=== PATIENT | male | born 1980 | race Caucasian/White ===

== ENCOUNTER 2024-06-09 23:05 | Inpatient (IN) | payer OTHER, SELFPAY ==
[2024-06-09 19:47] VITALS: BP 153/99; BMI 31.9
[2024-06-09 20:00] VITALS: BP 149/100
--- NOTE | 2024-06-09 20:00 | ED.GENMED ---
History of Present Illness
<Kei Fraire DO, Resident - Last Filed: 06/10/24 17:49>
General
Chief Complaint: Heart Rate Problem
Source: patient
Time Seen by Provider: 06/09/24 19:44
History of Present Illness
History of Present Illness:
Pt is a 44 YO M with no significant PMH presenting to the ED with tachycardia. He reports feeling 'like my heart is beating out of my chest.' He reports palpitations, some SOB intermittently since January, headaches, floaters at night, but no CP, NVD.
He previously took 0.5 mg Xanax to aid with sleep but has not received it since Saturday when arriving to custodial. He was told 'they are detox-ing him from the Xanax' and is unsure what medications he has been receiving.
If applicable-neuro sx onset
Onset of symptoms known: Yes
Date of onset of symptoms: 06/05/24
Past History
<Kei Fraire DO, Resident - Last Filed: 06/10/24 17:49>
Past History
ED Past Medical History: None
ED Past Surgical History: None
Social History
Tobacco: Non-smoker
Alcohol: None
Drug: Marijuana
Living: custodial
Review of Systems
<Kei Fraire DO, Resident - Last Filed: 06/10/24 17:49>
Review of Systems
Constitutional: Reports sleep disturbance
EENT: Reports no symptoms
Respiratory: Reports no symptoms
Cardiac: Reports palpitations
ABD/GI: Reports no symptoms
Skin: Reports no symptoms
Neurological: Reports headache
Phy Exam
<Kei Fraire DO, Resident - Last Filed: 06/10/24 17:49>
General Physical Exam
General Presentation: well appearing
General age: appears stated age
General Skin: warm and dry
General Habitus: normal
General Mental: alert
General Hydration: appears well hydrated
Cardiovascular Exam
Cardiovascular Exam: no edema, no gallop, no JVD, no murmur, normal peripheral pulses and tachycardia
Pulmonary Exam
Pulmonary Exam: lungs clear, no respiratory distress, no rales, chest non tender, no crackles, no rhonchi, no stridor, no wheezing and no cough
Psychiatric Exam
Psychiatric Exam: normal mood/affect
Scores
<Kei Fraire DO, Resident - Last Filed: 06/10/24 17:49>
[id number] Score for Afib Stroke Risk
Score: 0
Anticoagulation Recommendations: Anticoagulation not indicated (as validated in nonvalvular afib). Consider anticoagulation irrespective of score in patients with HCM
<Stalin Martínez DO - Last Filed: 06/09/24 20:36>
[id number] Score for Afib Stroke Risk
Age in Years (65=0, 65-74=1, >/=75=2): <65
Sex (Female=+1): Male
Congestive Heart Failure History (Yes=+1): No
Hypertension History (Yes=+1): No
Stroke/TIA/Thromboembolism History (Yes=+2): No
Vascular Disease History (Yes=+1): No
Diabetes Mellitus (Yes=+1): No
Score: 0
Anticoagulation Recommendations: Anticoagulation not indicated (as validated in nonvalvular afib). Consider anticoagulation irrespective of score in patients with HCM
Course
<Kei Fraire DO, Resident - Last Filed: 06/10/24 17:49>
Orders/Labs/Results
Orders:
Orders
06/09/24 Breakfast
Regular
At Your Request: Full Participation
06/09/24 19:45
EKG [Electrocardiogram (*1)] Urgent
Reason for Study: Tachycardia
06/09/24 19:46
EKG- Treatment ONCE
06/09/24 20:41
Diltiazem 125 mg/125 ml Nss [Cardizem] 125 mg in 125 ml IV NOW
Initial dose in mg/hr, then titrate:: 5
Titrate to keep:: Heart rate 80-100 bpm
Titrate by mg/hr:: 5 mg/hr
Frequency of titrations (minutes):: 15
Maximum dose in mg/hr:: 15
Diltiazem HCl [Cardizem] 15 mg IV NOW STA
06/09/24 21:01
Apixaban [Eliquis] 5 mg PO NOW STA
06/09/24 21:09
Basic Metabolic Panel Urgent
Complete Blood Count/With Diff Urgent
GGTP Urgent
Comment: ADD ON
Magnesium Urgent
Comment: ADD ON
TSH Reflex To Free T4 Urgent
06/09/24 22:45
Add On- LAB Routine
Tests Added?: ggt
Admit/Transfer Patient As Directed
Co-Sign Provider:
Level of Care: Inpatient admission
Assign to:: IVU
Physician / Group: Htay
Diagnosis: A-Fib with RVR
Reason for Hospitalization: Cardizem drip
Expected length of stay greater than two midnights?: Yes
ELOS- Estimated Length of Stay in days: 3
I certify the patient meets the requirements for IP care: Yes
06/09/24 22:46
Code Status As Directed
Resuscitation Status: Full Code
06/09/24 22:47
Add On- LAB Urgent
Tests Added?: mag
06/09/24 23:58
0.9% Sodium Chloride [Nss (Preservative Free)] See Protocol IV PRN PRN
Acetaminophen [Tylenol] 650 mg PO Q4HPRN PRN
Alprazolam [Xanax] 0.5 mg PO NOW STA
Diltiazem 125 mg/125 ml Nss [Cardizem] 125 mg in 125 ml IV PER PROTOCOL
Currently infusing. Continue current dose and titrate:: Yes
Titrate to keep:: Heart rate 80-100 bpm
Titrate by mg/hr:: 5 mg/hr
Frequency of titrations (minutes):: 15
Maximum dose in mg/hr:: 15
FOLic ACID [Folvite] 1 mg 0.9% Sodium Chloride 50 ml [Nss] 50 ml IV DAILYPRN
Lorazepam [Ativan] 1 mg IV Q1HPRN PRN
Lorazepam [Ativan] 1 mg PO Q2HPRN PRN
Lorazepam [Ativan] 2 mg IV Q1HPRN PRN
06/09/24 23:58
CARDIOLOGY CONSULT Routine
Consulting Provider: Juan Manuel Willis
Was physician already notified: Yes
Case Management Consult Once
Case Management Consult: Other
Comment: Substance abuse counseling
DIETARY CONSULT Routine
Reason for Consult: Nutrition support, possible refeeding guidelines
Activity As Directed
Activity Level: Out of Bed-Early Mobility
With Assistance
I&O [Intake/ Output] As Directed
Frequency: q12h
MSAS SCORE As Directed
MSAS Score 0-4: Repeat MSAS every 2 hours until 0-4 for three consecutive assessments, then every 4 hours x 48
hours.
MSAS Score 5-7: For MILD withdrawl symptoms. Repeat MSAS and RASS every 2 hours
MSAS Score 8-11: For MODERATE withdrawal symptoms. Repeat MSAS and RASS every 1 hour. Consider ICU or IMU
level of care.
MSAS Score > 11: For SEVERE withdrawal symptoms. Repeat MSAS and RASS every 1 hour. Notify provider, consider
ICU level of care.
MSAS Additional Instructions: If no improvement or no decrease in score from severe to moderate within 12
hours, consult psychiatry
MSAS Notify Provider: Notify provider if patient requires more than 10 mg of Lorazepam in eight hour period.
Vital Signs As Directed
Frequency: Per unit guidelines
Weight As Directed
Frequency: Daily
06/10/24 02:41
Basic Metabolic Panel IN AM
Complete Blood Count/No Diff IN AM
Magnesium IN AM
06/10/24 Breakfast
NPO
Allow oral meds: Yes
Allow clear liquids: 4hrs prior to procedure
NPO with Ice Chips: Yes
Comment: may have unrestricted clear liquid up to 4 hrs prior to scheduled procedure
06/10/24 08:00
Apixaban [Eliquis] 5 mg PO BID
FOLic ACID [Folvite] 1 mg PO DAILY
Thiamine Injection 200 mg IV Q12
06/10/24 22:00
Alprazolam [Xanax] 0.5 mg PO HS
06/13/24 08:00
Thiamine HCl [Vitamin B1] 100 mg PO BID
Abnormal Lab Results
06/09/24
21:09
MCH 31.4 H pg
(27.0-31.0)
Absolute Monos (auto) 0.8 H 10^3/uL
(0.1-0.6)
Monocytes % 16.2 H %
(1.7-9.3)
Glucose 118 H mg/dl
(70-99)
06/09/24 21:09
06/09/24 21:09
Vital Signs
Initial and Last Documented VS:
Initial Vital Signs
Temp Pulse Resp BP Pulse Ox
98.2 F 152 22 153/99 97
06/09/24 19:47 06/09/24 19:47 06/09/24 19:47 06/09/24 19:47 06/09/24 19:47
Last Documented Vital Signs
Temp Pulse Resp BP Pulse Ox
97.5 F 75 20 108/68 99
06/10/24 15:54 06/10/24 15:55 06/10/24 15:54 06/10/24 15:55 06/10/24 15:55
[employer]olt;Stalin Martínez, - Last Filed: 06/09/24 20:36>
Orders/Labs/Results
Orders:
Orders
06/09/24 Breakfast
Regular
At Your Request: Full Participation
06/09/24 19:45
EKG [Electrocardiogram (*1)] Urgent
Reason for Study: Tachycardia
06/09/24 19:46
EKG- Treatment ONCE
06/09/24 20:41
Diltiazem 125 mg/125 ml Nss [Cardizem] 125 mg in 125 ml IV NOW
Initial dose in mg/hr, then titrate:: 5
Titrate to keep:: Heart rate 80-100 bpm
Titrate by mg/hr:: 5 mg/hr
Frequency of titrations (minutes):: 15
Maximum dose in mg/hr:: 15
Diltiazem HCl [Cardizem] 15 mg IV NOW STA
06/09/24 21:01
Apixaban [Eliquis] 5 mg PO NOW STA
06/09/24 21:09
Basic Metabolic Panel Urgent
Complete Blood Count/With Diff Urgent
GGTP Urgent
Comment: ADD ON
Magnesium Urgent
Comment: ADD ON
TSH Reflex To Free T4 Urgent
06/09/24 22:45
Add On- LAB Routine
Tests Added?: ggt
Admit/Transfer Patient As Directed
Co-Sign Provider:
Level of Care: Inpatient admission
Assign to:: IVU
Physician / Group: Htay
Diagnosis: A-Fib with RVR
Reason for Hospitalization: Cardizem drip
Expected length of stay greater than two midnights?: Yes
ELOS- Estimated Length of Stay in days: 3
I certify the patient meets the requirements for IP care: Yes
06/09/24 22:46
Code Status As Directed
Resuscitation Status: Full Code
06/09/24 22:47
Add On- LAB Urgent
Tests Added?: mag
06/09/24 23:58
0.9% Sodium Chloride [Nss (Preservative Free)] See Protocol IV PRN PRN
Acetaminophen [Tylenol] 650 mg PO Q4HPRN PRN
Alprazolam [Xanax] 0.5 mg PO NOW STA
Diltiazem 125 mg/125 ml Nss [Cardizem] 125 mg in 125 ml IV PER PROTOCOL
Currently infusing. Continue current dose and titrate:: Yes
Titrate to keep:: Heart rate 80-100 bpm
Titrate by mg/hr:: 5 mg/hr
Frequency of titrations (minutes):: 15
Maximum dose in mg/hr:: 15
FOLic ACID [Folvite] 1 mg 0.9% Sodium Chloride 50 ml [Nss] 50 ml IV DAILYPRN
Lorazepam [Ativan] 1 mg IV Q1HPRN PRN
Lorazepam [Ativan] 1 mg PO Q2HPRN PRN
Lorazepam [Ativan] 2 mg IV Q1HPRN PRN
06/09/24 23:58
CARDIOLOGY CONSULT Routine
Consulting Provider: Juan Manuel Willis
Was physician already notified: Yes
Case Management Consult Once
Case Management Consult: Other
Comment: Substance abuse counseling
DIETARY CONSULT Routine
Reason for Consult: Nutrition support, possible refeeding guidelines
Activity As Directed
Activity Level: Out of Bed-Early Mobility
With Assistance
I&O [Intake/ Output] As Directed
Frequency: q12h
MSAS SCORE As Directed
MSAS Score 0-4: Repeat MSAS every 2 hours until 0-4 for three consecutive assessments, then every 4 hours x 48
hours.
MSAS Score 5-7: For MILD withdrawl symptoms. Repeat MSAS and RASS every 2 hours
MSAS Score 8-11: For MODERATE withdrawal symptoms. Repeat MSAS and RASS every 1 hour. Consider ICU or IMU
level of care.
MSAS Score > 11: For SEVERE withdrawal symptoms. Repeat MSAS and RASS every 1 hour. Notify provider, consider
ICU level of care.
MSAS Additional Instructions: If no improvement or no decrease in score from severe to moderate within 12
hours, consult psychiatry
MSAS Notify Provider: Notify provider if patient requires more than 10 mg of Lorazepam in eight hour period.
Vital Signs As Directed
Frequency: Per unit guidelines
Weight As Directed
Frequency: Daily
06/10/24 02:41
Basic Metabolic Panel IN AM
Complete Blood Count/No Diff IN AM
Magnesium IN AM
06/10/24 Breakfast
NPO
Allow oral meds: Yes
Allow clear liquids: 4hrs prior to procedure
NPO with Ice Chips: Yes
Comment: may have unrestricted clear liquid up to 4 hrs prior to scheduled procedure
06/10/24 08:00
Apixaban [Eliquis] 5 mg PO BID
FOLic ACID [Folvite] 1 mg PO DAILY
Thiamine Injection 200 mg IV Q12
06/10/24 22:00
Alprazolam [Xanax] 0.5 mg PO HS
06/13/24 08:00
Thiamine HCl [Vitamin B1] 100 mg PO BID
Abnormal Lab Results
06/09/24
21:09
MCH 31.4 H pg
(27.0-31.0)
Absolute Monos (auto) 0.8 H 10^3/uL
(0.1-0.6)
Monocytes % 16.2 H %
(1.7-9.3)
Glucose 118 H mg/dl
(70-99)
06/09/24 21:09
06/09/24 21:09
Vital Signs
Initial and Last Documented VS:
Initial Vital Signs
Temp Pulse Resp BP Pulse Ox
98.2 F 152 22 153/99 97
06/09/24 19:47 06/09/24 19:47 06/09/24 19:47 06/09/24 19:47 06/09/24 19:47
Last Documented Vital Signs
Temp Pulse Resp BP Pulse Ox
97.5 F 75 20 108/68 99
06/10/24 15:54 06/10/24 15:55 06/10/24 15:54 06/10/24 15:55 06/10/24 15:55
<Kei Fraire DO, Resident - Last Filed: 06/10/24 17:49>
MDM/Problems Addressed
Differential Diagnosis Includes:
atrial fibrillation
MDM/Problems Addressed:
Pt is a 44 YO M presenting to the ED from custodial after new onset afib. He was given 15 mg Cardizem and admitted to the hospital for potential cardioversion. Consult Cardio
Chronic conditions affecting care:
Afib
Acute Exacerbation and/or Progression of Chronic Illness:
Afib
<Kei Fraire DO, Resident - Last Filed: 06/10/24 17:49>
*Pulse Oximetry
Patient hypoxic: no
*EKG
Interpreted by ED Provider?: Yes
Interpretation: abnormal
Comparison EKG: no comparison EKG present
Heart Rate: 122
Rate: tachycardiac
Rhythm: a-fib
Ischemia: no ischemia
*Certified Forklift Operator Interpretation
Rate: tachycardiac
Interpretation: abnormal
Heart Rate: 122
Rhythm: a-fib
*Critical Care Note
Total Time (30-74mins, 75-104mins- exclusive of procedures): Not Applicable
ED Attending Note
<Kei Fraire DO, Resident - Last Filed: 06/10/24 17:49>
-
Portions of this chart may have been created with voice recognition software.� Occasional wrong word or��sound alike� substitutions may have occurred due to the inherent limitations of voice recognition software.
Discharge Plan
Departure
Patient Disposition: Admit
Presentation/result/management discussed w/ accepting MD/DO: Hospitalist
Discharge Problem:
Atrial fibrillation
Interventions
Interventions:
*Risk Screen - Suicide Last Done: 06/09/24 20:00
*General Assessment Last Done: 06/09/24 19:47
*Neglect/Abuse Screening Last Done: 06/09/24 19:47
ED- Fall Risk Assessment Last Done: 06/09/24 19:59
*ED COVID-19 Vaccine History Last Done: 06/10/24 00:05
*Nursing Disposition Last Done: 06/10/24 00:05
ED- Cardiac Assessment Last Done: 06/09/24 19:59
ED- Pulmonary Assessment Last Done: 06/09/24 19:59
Discharge Date and Time
Discharge Date/Time: 06/10/24 00:06
[2024-06-09 21:00] VITALS: BP 137/93
[2024-06-09] MEDS: ELIQUIS 5 MG PO (21:11)
[2024-06-09] MEDS: CARDIZEM 125 IV (21:11)
[2024-06-09] MEDS: CARDIZEM 15 MG IV (21:11)
[2024-06-09 21:15] LABS: % Basophils 0.4 % (0-2); % Eosinophils 4.4 % (0-6); % Immature Granulocytes 0.2 % (0-0.5); % Lymphocytes 26.6 % (20.5-51.1); % Monocytes 16.2 % (1.7-9.3); % Neutrophils 52.2 % (42.2-75.2); Absolute Eosinophils 0.2 10^3/uL (0-0.7); Absolute Lymphocytes 1.3 10^3/uL (1.2-3.4); Absolute Monocytes 0.8 10^3/uL (0.1-0.6); Absolute Neutrophils 2.5 10^3/uL (1.4-6.5); Hematocrit 43.9 % (39.0-52.0); Hemoglobin 15.4 g/dL (13.0-18.0); Mean Corp Hgb Conc. 35.1 g/dL (33.0-37.0); Mean Corpuscular Hgb 31.4 pg (27.0-31.0); Mean Corpuscular Volume 89.4 fL (80.0-94.0); Mean Platelet Volume 9.4 fL (7.4-10.4); Nucleated Red Blood Cells % 0 % (-); Platelet Count 209 10^3/uL (130-400); Red Blood Cell Count 4.91 10^6/uL (4.70-6.10); Red Cell Dist. Width 13.3 % (11.5-14.5); White Blood Cell Count 4.8 10^3/uL (4.8-10.8)
[2024-06-09 21:33] LABS: Blood Urea Nitrogen 17 mg/dl (9-20); Carbon Dioxide 24 mmol/L (22-30); Chloride 102 mmol/L (98-107); Estimated Creatinine Clearance 98 ml/min; Glucose 118 mg/dl (70-99); Potassium 4.1 mmol/L (3.5-5.1); Sodium 140 mmol/L (135-145); eGFR > 60.00
[2024-06-09 22:00] VITALS: BP 138/107
[2024-06-09 22:04] LABS: TSH Reflex To Free T4 1.03 uIU/ml (0.47-4.68)
--- NOTE | 2024-06-09 22:51 | W.PN.UPDATE ---
Update Note
Progress Note Update
This note serves as an addendum to the H&P by data systems manager GUIDO Prachi CANTU
HPI
44M from [facility] with no significant PMHx seen at ER for evalaution of racing heart
- reports palpitations started
- somewhat intermittently SoB since January
- Denied CP , N/V/D
- usually take clonazepam 0.5 mgHS but not taking since Saturday for last 5 days following arrest and sent to [facility]
Reviewed VS: afebrile HR 98 BP 135/93 RR 21 POx 96
PE
Gen: NAD, not toxic
HEENT: anicteric
Neck: supple, no JVD
Lungs: CTA
Cor: irregular tachycardia
Abdomen: soft, benign
DISTRIBUTION DISPATCHER: AAO3 , NFND
MS: no edema
Psych: appropriate
[id number] Score for Afib Stroke Risk
Age in Years (65=0, 65-74=1, >/=75=2): <65
Sex (Female=+1): Male
Congestive Heart Failure History (Yes=+1): No
Hypertension History (Yes=+1): No
Stroke/TIA/Thromboembolism History (Yes=+2): No
Vascular Disease History (Yes=+1): No
Diabetes Mellitus (Yes=+1): No
Score: 0
Anticoagulation Recommendations: Anticoagulation not indicated (as validated in nonvalvular afib).
Consider anticoagulation irrespective of score in patients with HC
Data
Unremarkable CBC and BMP
nl TSH
EKG report
ATRIAL FIBRILLATION WITH RAPID VENTRICULAR RESPONSE
ABNORMAL ECG
NO PREVIOUS ECGS AVAILABLE
No prior hospitalist admission:
ASSESSMENT & PLAN
New onset paroxysmal fast AF
[id number] Score for Afib Stroke Risk is ZERO
- ECHO in AM
- cont. Diltiazem gtt
- ER initiated Eliquis
- Card consulted by ER attbrent and suggest NPO overnight and will consider CV
Xanax dependent insomnia /anxiety
- getting Clonazepam ai [facility]
- resume Xanax HS PRN
HX ETOH use
Currently under custody for DUI + others ??
- MSAS
DVT Px: on Eliquis
Code: Full code
IP TLM
--- NOTE | 2024-06-09 22:55 | HPS.HSE ---
Family Physician
-
Family Physician: [facility] [place] [facility]
Chief Complaint
-
Elevated Heart Rate
History of Present Illness
Patient is a 44 y/o male without significant past medical history who presents with elevated heart rate. Patient has been incarcerated at [facility] since Saturday for a DUI. He notes since incarceration he has been having difficult sleeping. He reports
usually taking Xanax at bedtime to help him sleep and he reports the [facility] has been trying to wean him from the Xanax. Patient was noted to have elevated heart rate today and ECG at [facility] revealed atrial fibrillation with rapid ventricular
response, and he was sent to the emergency department for evaluation. He reports no prior history of atrial fibrillation. He reports feeling fatigued over the past few months, with some intermittent palpitations and shortness of breath. He denies
chest pain or lower extremity edema.
Medical History
Past Medical History
Past Medical History: Reports Other
Additional Past Medical History:
Spinal Stenosis
Past Surgical History: Reports Other
Additional Past Surgical History:
Laminectomy
Social History
Tobacco: Non-smoker
Alcohol: Occasional (Patient reports 2 shots of Monica occasionally for back pain)
Living: Jail
Family History
Family History: Other (Two Grandparents with history a-fib)
Allergies / Home Medications
Allergies reflects when Allergies were last updated in [employer].
Home Medications with original date entered in [employer]
Allergy/Medication List:
Allergies
Allergy/AdvReac Type Severity Reaction Status Date / Time
acetaminophen [From Tylenol] Allergy GI Verified 09/13/21 00:04
upset/bleeding?
bee pollen Allergy Anaphylaxis Verified 09/13/21 00:04
meloxicam [From Mobic] Allergy Anaphylaxis Verified 09/13/21 00:04
methylprednisolone Allergy Anaphylaxis Verified 09/13/21 00:04
[From Medrol]
Home Medications
clonazepam 0.5 mg tablet 0.5 mg PO BID 06/09/24
cyclobenzaprine 5 mg tablet 5 mg PO BIDPRN PRN muscle spasms 06/09/24
methocarbamol 750 mg tablet 750 mg PO BIDPRN PRN back pain 06/09/24
Review of Systems
-
A 12 point ROS was completed and negative except as noted: Yes
Constitutional: Denies Fever or Chills
Respiratory: Reports Trouble Breathing; Denies Cough
Cardiac: Reports Palpitations; Denies Chest Pain
Physical Exam
Vital Signs
Vital Signs
Temp Pulse Resp BP Pulse Ox
98.2 F 114 22 138/107 95
06/09/24 19:47 06/09/24 22:45 06/09/24 22:45 06/09/24 22:00 06/09/24 22:45
Physical Exam
General: Comfortable and Conversant
HEENT: Anicteric and Moist mucous membranes
Respiratory: Clear and Non Labored Respirations
Cardiac: S1/S2, Irregular Rhythm and Tachycardia
GI: Soft and Non Tender
Rectal: Deferred by Provider
Musculoskeletal: No Clubbing, No Cyanosis and No Edema
Skin: Warm and Dry
Neuro: Awake, Alert, Oriented and Nonfocal/grossly intact
Psych: Calm
Laboratory Results
-
06/09/24 21:09
06/09/24 21:09
Data Reviewed
-
Lab Data: Labs Reviewed by me
Impression/Plan
-
Atrial Fibrillation with Rapid Ventricular Response
-Consult Cardiology
-Continue Cardizem Drip
-Continue Eliquis
-NPO after midnight for possible Cardioversion in AM
Insomnia
-Continue Xanax 0.5mg HS as patient was taking prior to incarceration
Hx Alcohol Use
-Currently incarcerated for DUI
-Continue alcohol withdrawal protocol
DVT proph: Eliquis
Code Status: Full Code
[2024-06-09 23:00] VITALS: BP 170/121
[2024-06-09 23:08] LABS: GGTP 24 U/L (15-73); Magnesium 2.1 mg/dl (1.6-2.3)
[2024-06-10] VITALS (9 sets, daily range): BP systolic 108–164; BP diastolic 68–115; BMI 31.9; BMI 31.2
[2024-06-10] MEDS: XANAX 0.5 MG PO (00:12)
--- NOTE | 2024-06-10 01:29 | PTCARENOTE ---
received patient from the ED with 2 guards. AAOx3. denies any pain. states feeling better, 'since that medication, my heart isn't pounding as much.' denies sob at this time. Afib on tele. 70s-80s. decreased cardizem gtt to 10 ml/hr. bp stable. MSAS
1. during admission questions, patient states 'i do not drink. I never drink.' RN documented admission questions as stated by patient.
reviewed plan of care with patient and verbalized understanding. NPO for possible CV in AM. afib booklet provided.
[2024-06-10 03:13] LABS: Hematocrit 44.4 % (39.0-52.0); Hemoglobin 15.3 g/dL (13.0-18.0); Mean Corp Hgb Conc. 34.5 g/dL (33.0-37.0); Mean Corpuscular Hgb 31.7 pg (27.0-31.0); Mean Corpuscular Volume 91.9 fL (80.0-94.0); Mean Platelet Volume 8.9 fL (7.4-10.4); Platelet Count 175 10^3/uL (130-400); Red Blood Cell Count 4.83 10^6/uL (4.70-6.10); Red Cell Dist. Width 13.2 % (11.5-14.5); White Blood Cell Count 4.6 10^3/uL (4.8-10.8)
[2024-06-10 03:37] LABS: Blood Urea Nitrogen 14 mg/dl (9-20); Calcium 9.6 mg/dl (8.4-10.2); Carbon Dioxide 25 mmol/L (22-30); Chloride 103 mmol/L (98-107); Estimated Creatinine Clearance 116 ml/min; Glucose 102 mg/dl (70-99); Magnesium 2.1 mg/dl (1.6-2.3); Potassium 3.8 mmol/L (3.5-5.1); Sodium 139 mmol/L (135-145); eGFR > 60.00
--- NOTE | 2024-06-10 07:07 | PTCARENOTE ---
In to introduce myself to the patient after receiving report and noticed that the patient had just converted to NSR. ECG confirmed conversion, NSR with a 1st degree AVB. Cardizem gtt running at 10mg/hr. Notified Dr. Adhikari.
[2024-06-10] MEDS: THIAMINE INJECTION 200 MG IV (07:51)
[2024-06-10] MEDS: ELIQUIS 5 MG PO (07:51)
[2024-06-10] MEDS: FLUSH (NSS) 1 FLUSH IV ×2 (07:56→07:57)
[2024-06-10] MEDS: FOLVITE 1 MG PO (07:59)
--- NOTE | 2024-06-10 08:04 | CON.CAR ---
Addendum entered and electronically signed by Stalin Adhikari MD 06/10/24 14:36:
Patient seen and examined in collaboration with [employer]; agree with below.
-44-year-old male with likely untreated hypertension admitted with atrial fibrillation with RVR; currently incarcerated for a DUI.
-C2V = 1; patient converted back to sinus rhythm overnight on a Cardizem drip.
-Echocardiogram today revealed normal LVEF and no significant valvulopathy.
-Patient can be discharged today on Eliquis 5 mg twice daily for 1 month and Cardizem CD 180 mg daily.
-Outpatient follow-up with Cardiology; outpatient stress test for ischemic evaluation, given new onset paroxysmal atrial fibrillation.
Original Note:
Consultation
Consultation Request
Date/Time Consultation Requested: 06/09/2024 23:50
Date/Time Consultation Performed: 06/10/2024 08:00
Requesting Provider: Mahogany Tiardo PA-C
Performing Provider: KAITLYNN Pepper for Dr. Adhikari
Reason for Consultation: Atrial fibrillation with rapid ventricular response
Medical History
-
Chief Complaint: Tachycardia with palpitations
History of Present Illness:
Addi Lilly is a 44-year-old male for [facility] who presented with elevated heart rate. He has been incarcerated since 06/05/2024. He endorses insomnia. Prior to incarceration, he was using Xanax to help him
sleep. He was found to be in atrial fibrillation with rapid ventricular response and was sent to the emergency department for evaluation. This is a new diagnosis for him. He was started on a diltiazem drip. He is in sinus rhythm this morning
with a first-degree AV block. He had no chest pain with his arrhythmia.
Past Medical History
Past Medical History: Psychiatric (Alcohol misuse) and Other (Spinal stenosis)
Past Surgical History: Orthopedic (Laminectomy) and Other (Vein surgery age 15 to LLE)
Social History
Tobacco: Non-Smoker
Alcohol: Occasional
Drug: None
Living: Care Home
Employment: Employed (Construction)
Family History
Family History: Reviewed & Not Pertinent (Denies early CAD and SCD.)
Allergies / Home Medications
Allergy/AdvReac Type Severity Reaction Status Date / Time
acetaminophen [From Tylenol] Allergy GI Verified 09/13/21 00:04
upset/bleeding?
bee pollen Allergy Anaphylaxis Verified 09/13/21 00:04
meloxicam [From Mobic] Allergy Anaphylaxis Verified 09/13/21 00:04
methylprednisolone Allergy Anaphylaxis Verified 09/13/21 00:04
[From Medrol]
�Medication �Instructions �Recorded �Confirmed �Type
clonazepam 0.5 mg tablet 0.5 mg PO BID 06/09/24 06/09/24 History
cyclobenzaprine 5 mg tablet 5 mg PO BIDPRN PRN muscle spasms 06/09/24 06/09/24 History
methocarbamol 750 mg tablet 750 mg PO BIDPRN PRN back pain 06/09/24 06/09/24 History
Review of Systems
-
History Source: Patient
All other systems: Negative unless noted
Constitutional: Fatigue
EENT: No Symptoms
Respiratory: No Symptoms
Cardiac: No Symptoms
Abdomen/GI: No Symptoms
: No Symptoms
Musculoskeletal: No Symptoms
Skin: No Symptoms
Neurological: No Symptoms
Endocrine: No Symptoms
Hematologic/Lymphatic: No Symptoms
Physical Exam
Vital Signs
Temp Pulse Resp BP Pulse Ox
97.7 F 75 20 122/86 97
06/10/24 06:42 06/10/24 07:45 06/10/24 06:42 06/10/24 06:44 06/10/24 06:42
Lab Results
06/10/24 02:41
06/10/24 02:41
Physical Exam
General: Well Developed, Well Nourished, No Apparent Distress and Comfortable
HEENT: Normocephalic, Anicteric and Moist Mucous Membranes
Respiratory: Clear and Non Labored Respirations
Cardiac: S1/S2, Regular Rhythm and Peripheral Edema (Nonpitting +1 LLE)
Breast: Deferred by me
GI: Soft, Non Tender, Non Distended and Normal Bowel Sounds
Rectal: Deferred by Provider
Genito-urinary: No Costovertebral Tender
Musculoskeletal: No Clubbing and No Cyanosis
Skin: Warm and Dry
Neuro: AO x 3
Hematologic/Lymphatic: No Lymphadenopathy
Psych: Calm
Impression / Plan
-
Atrial fibrillation with rapid ventricular response
-Back in sinus
-Oral Anticoagulation: None prior to arrival, he was given apixaban overnight for potential FLETCHER/DCCV
-[id number]: Score 0 (<del>Heart</del> <del>failure,</del> <del>HTN,</del> <del>age</del> <del>76</del> <del>or</del> <del>more,</del> <del>Diabetes</del> <del>Mellitus,</del> <del>prior</del> <del>Stroke/TIA,</del> <del>Vascular</del>
<del>disease,</del> <del>age</del> <del>65-74,</del> <del>female</del> <del>gender</del>)
-Echocardiogram today
-Transition to oral diltiazem
-We discussed increased risk for atrial fibrillation specifically excess alcohol consumption, untreated PAUL, and sedentary lifestyle
Elevated blood pressure, this has improved, no formal diagnosis of hypertension and perhaps there is an element of withdrawal
Alcohol misuse, on MSAS as per primary
Spinal stenosis
BMI 31.9
Data Reviewed
-
EKG: Report Reviewed by me (Atrial fibrillation with rapid ventricular response, rate 112; sinus rhythm with first-degree AV block, nonspecific ST abnormality, rate 80)
Labs: Labs Reviewed by me
Old Records: Reviewed
[2024-06-10] MEDS: CARDIZEM 125 IV (08:07)
[2024-06-10] MEDS: TYLENOL 650 MG PO ×2 (08:07→15:30)
--- NOTE | 2024-06-10 12:36 | CM ---
Reviewed chart. Received consult for substance abuse counseling. Met with Mr. Lilly to review discharge plans. Currently he is in [facility]. We reviewed if he wanted any information and counseling for Substance counseling. He states he is not
interested in getting any information regarding counseling services at this time. Medical work-up in progress. The discharge plan is to return to [facility] when medically stable.
--- NOTE | 2024-06-10 14:45 | W.PN.HOSP.TC ---
Addendum entered and electronically signed by Joe Retana MD 06/10/24 15:16:
Benzodiazepine use with dependence
Original Note:
Today's Communication/Plan
-
Monitor vital signs see plan
Discharge today
Continue Eliquis
P.o. diltiazem
Time of discharge 37 minutes
Assessment / Plan
Assessment / Plan
General: Comfortable and Conversant
HEENT: Anicteric and Moist mucous membranes
Respiratory: Clear and Non Labored Respirations
Cardiac: S1/S2, regular Rhythm
GI: Soft and Non Tender
Musculoskeletal: No Clubbing, No Cyanosis and No Edema
Neuro: Awake, Alert, Oriented and Nonfocal/grossly intact
Psych: Calm
New onset Atrial Fibrillation with Rapid Ventricular Response
Overnight converted subsequently to normal sinus rhythm
Change IV Cardizem to p.o.
Reviewed with cardiology, echocardiogram without any acute changes
Started on Eliquis
Will discharge patient with outpatient follow-up
TSH wnl
Insomnia
-Continue Xanax 0.5mg HS as patient was taking prior to incarceration
Hx Alcohol Use
-Currently incarcerated for DUI
-Continue alcohol withdrawal protocol
DVT proph: Eliquis
Code Status: Full Code
Anticipated Discharge: Today
Subjective/Interval History
-
Date of Service: June 10, 2024
Denies chest pain
Objective Data
-
Labs:
Laboratory Results
06/10/24
02:41
WBC 4.6 L
Hgb 15.3
Hct 44.4
Plt Count 175
Sodium 139
Potassium 3.8
Chloride 103
Carbon Dioxide 25
BUN 14
Creatinine 1.1
Glucose 102 H
Calcium 9.6
Vital Signs:
Vital Signs
Temp Pulse Resp BP Pulse Ox
98 F 78 20 127/79 97
06/10/24 12:21 06/10/24 13:00 06/10/24 12:21 06/10/24 12:24 06/10/24 12:23
--- NOTE | 2024-06-10 14:49 | PN.CDI ---
CDI
- -
CDI:
Physician Documentation Request
Admit Date: 06/09/24 23:05
Dear Doctor Mazin,
Clinical Indicators:
Patient admitted with new onset atrial fibrillation.
06/09 ED Report, 'He previously took 0.5 mg Xanax to aid with sleep but has not received it since Saturday when [facility]. He was told 'they are detox-ing him from the Xanax'
06/10 Cardiology consult,'Elevated blood pressure, this has improved, no formal diagnosis of hypertension and perhaps there is an element of withdrawal'
06/10 PN, '-Continue Xanax 0.5mg HS as patient was taking prior to incarceration'
Please clarify if there is any diagnosis associated with the above medication usage:
Benzodiazepine use with dependence
Benzodiazepine use with dependence and suspected withdrawal
Benzodiazepine use only
Other, please specify
Use of terms such as suspected, likely, concern for, or probable (associated with a specific diagnosis that is being evaluated, monitored, or treated as if it exists) are acceptable and can be coded in the inpatient setting, when documented at the
time of discharge.
Thank you,
Tatiana Ivy RN BSN
CDI Specialist
available via tiger text
Please use your independent medical judgment in providing your response.
--- NOTE | 2024-06-10 14:51 | W.DCSUMMARY ---
Discharge Summary
Discharge Data
Date of Admission: 06/09/24
Date of Discharge: 06/10/24
-
Pending Results: No
Hospital Course
44-year-old male with a history of alcohol use, insomnia came to the hospital from [facility] with new onset atrial fibrillation with rapid ventricular rate. Patient was initially started on IV Cardizem which was later transitioned to p.o. Cardizem
prior to discharge. Patient subsequently converted to normal sinus rhythm on this hospitalization. Echocardiogram was also done which did not show any acute abnormality. Patient was seen by cardiology throughout hospitalization. Patient
instructed to follow-up with cardiology outpatient. For anticoagulation patient was started on Eliquis. Once patient symptoms continue to improve he was then discharged back to [facility] with instructions to follow-up with all his physicians
outpatient.
Discharge Plan
-
Patient Disposition: Group Home
Discharge Diagnosis/Procedures: New onset atrial fibrillation with rapid ventricular rate
Condition: Fair
Diet: As tolerated
Activity: No restrictions
Bathing Restrictions: None
Referrals:
Stalin Adhikari MD [Active] - in three to four weeks
[facility] [Family Provider] - in less than 1 week
Prescriptions:
New
diltiazem HCl 180 mg Capsule,Extended Release 24hr
180 mg PO DAILY Qty: 0 0RF
thiamine HCl (vitamin B1) 100 mg Tablet
100 mg PO BID Qty: 0 0RF
folic acid 1 mg Tablet
1 mg PO DAILY Qty: 0 0RF
Eliquis 5 mg Tablet
5 mg PO BID Qty: 0 0RF
Continued
clonazepam 0.5 mg Tablet
0.5 mg PO BID
methocarbamol 750 mg Tablet
750 mg PO BIDPRN PRN (Reason: back pain)
cyclobenzaprine 5 mg Tablet
5 mg PO BIDPRN PRN (Reason: muscle spasms)
Discharge Orders:
Discharge Patient (As Directed); Ordered 06/10/24
Ordered By: Joe Retana
Care Plan Goals
Care Plan Goals:
Problem: Readiness for enhanced knowledge related to diagnosis and treatment plan
Goal: Understand your diagnosis and treatment plan needs, including medications if applicable.
Instructions: Know your diagnosis, underlying causes and treatment plan options, including medications if applicable. Consult with your health care team to learn about your diagnosis and treatment plan, including medications if applicable.
Discharge Date and Time
Print Language: WELSH
== END 2024-06-10 18:18 | DRG 309 ==
LOC: IVU 23:05
PROVIDERS: Physician Assistant Medical; ADMITTING PHYSICIAN Internal Medicine; ATTENDING PHYSICIAN Internal Medicine; EMERGENCY PHYSICIAN Emergency Medicine; OTHER PHYSICIAN Internal Medicine
DX: I48.0 Paroxysmal atrial fibrillation (principal); F13.20 Sedative, hypnotic or anxiolytic dependence, uncomplicated; G47.00 Insomnia, unspecified
CPT/HCPCS: 80048; 82977; 83735; 84443; 85025; 85027; 87070; 93005; 93306; 96374; 96376; 99285

== ENCOUNTER 2024-06-26 09:25 | Emergency (ER) | payer OTHER, SELFPAY ==
[2024-06-26 09:30] VITALS: BP 154/81
--- NOTE | 2024-06-26 09:30 | ED.GENMED ---
History of Present Illness
General
Chief Complaint: Chest Pain
Time Seen by Provider: 06/26/24 09:29
History of Present Illness
History of Present Illness:
HPI: The patient comes in by ambulance from [facility]. The patient felt dizzy and then nearly passed out this morning. He also reports having intermittent chest discomfort and left-sided paresthesias ongoing since his last
visit here in 2 weeks ago. At that time he was found to be in new onset A-fib with RVR and was placed on Cardizem he was also started on Eliquis. The patient reports some concerns if he was actually getting the Eliquis or not. He thinks he last
received Eliquis last evening. Blood sugar for EMS was 95.
EXAM:
GENERAL: Well appearing in no distress
HEENT: Moist oral mucosa
CARDIOVASCULAR: No murmurs, intermittently tachycardic heart rate, irregular rhythm, No chest wall tenderness
PULMONARY: No respiratory distress, breath sounds are clear and equal
ABDOMEN: Soft with no peritoneal signs, no tenderness
NEUROLOGIC: Good strength all extremities with exception of some weakness into dorsiflexion at the left ankle, no coordination deficits
PSYCHIATRIC: Appropriate mental status, normal insight and judgement
EXTREMITIES: Nontender, no edema, moves all extremities equally
SKIN: No rash, no lesions
TIME OF INITIAL ENCOUNTER: 9:30 AM
NUMBER AND COMPLEXITY OF PROBLEMS ADDRESSED AT THE ENCOUNTER
� Chronic conditions affecting care: Recent diagnosis of atrial fibrillation with RVR
� Acute Exacerbation and/or Progression of Chronic Illness: This is an acute problem
� Differential Diagnosis includes: Recurrence of A-fib with RVR, dehydration, anemia, electrolyte abnormality, thyroid testing was recently normal
AMOUNT AND/OR COMPLEXITY OF DATA TO BE REVIEWED AND ANALYZED
� I performed an independent evaluation of and my interpretation is:
EKG: A-fib 84, leftward axis deviation, nonspecific ST abnormality
CT: CT shows no acute intracranial abnormality
X-rays:
Laboratory Studies: CBC, chemistries, troponin unremarkable
Other: Ultrasound imaging shows no DVT
� Review of other/old records: I reviewed discharge summary from earlier this month. He was discharged on Cardizem and Eliquis. Echo showed normal LVEF and no significant valvulopathy
� Clinical information was obtained by an independent historian: I spoke to [facility] officers
� Prescriptions/Medications Considered but not given:
� Further testing considered but not performed: Consider repeat troponin however the patient's symptoms of chest discomfort have been ongoing for weeks.
RISK OF COMPLICATIONS AND/OR MORBIDITY OR MORTALITY OF PATIENT MANAGEMENT
� Social determinants of health affecting care: Currently resides at [facility] (recent DUI)
� Discussion with other providers: I spoke to the [facility] nurse which indicates that the patient did miss 1 dose of Eliquis on 06/13/2024. Since then he did not miss any doses but did not take the
morning dose today. I discussed case with Dr. Dias at 9:53 AM. Agrees with holding off on cardioversion at this time.
� Escalation of care including admission/observation vs risk of discharge considered: The patient was given IV fluids. Given the associated chest discomfort along with paresthesias troponin and CT brain have been obtained.
Unremarkable ED workup. The patient was initially rate controlled but prior to discharge did have increased rate�Cardizem given both IV and orally. He is already anticoagulated and gave him his morning dose here. On reassessment at 1:45 PM,
patient is well-appearing but rate has increased. Unclear etiology of patient's near syncope/syncope. He was given IV fluids. The chest pain was not acute and has been going on for a couple of weeks
Past History
Past History
ED Past Medical History: None
ED Past Surgical History: None
Social History
Tobacco: Non-smoker
Alcohol: None
Drug: Marijuana
Living: detention
Phy Exam
Physical Exam
Physical Exam:
See HPI
Scores
Heart Score for Chest Pain Patients
STEMI patient?: Not applicable
Course
Orders/Labs/Results
Orders:
Orders
06/26/24 09:29
CT Head W/o Iv Contrast Urgent
Comment:
Reason For Exam: ?L weakness
US Legs, Left [US Periph Venous LOWER Ext LT] Urgent
Comment:
Reason For Exam: swelling
06/26/24 09:30
Electrocardiogram (*1) Urgent
Reason for Study: Syncope
EKG- Treatment ONCE
06/26/24 10:10
Basic Metabolic Panel Urgent
Complete Blood Count/With Diff Urgent
Magnesium Urgent
Troponin I Urgent
06/26/24 13:33
Diltiazem Sustained Release [Cardizem Sr] 180 mg PO NOW STA
06/26/24 13:41
0.9% Sodium Chloride 1000 ml [Nss] 1,000 ml IV BOLUS
Diltiazem HCl [Cardizem] 10 mg IV NOW STA
06/26/24 13:44
Apixaban [Eliquis] 5 mg PO NOW STA
Abnormal Lab Results
06/26/24
10:10
RBC 4.68 L 10^6/uL
(4.70-6.10)
MCH 31.6 H pg
(27.0-31.0)
Absolute Lymphs (auto) 0.6 L 10^3/uL
(1.2-3.4)
Neutrophils % 76.3 H %
(42.2-75.2)
Lymphocytes % 10.1 L %
(20.5-51.1)
Monocytes % 10.9 H %
(1.7-9.3)
Glucose 111 H mg/dl
(70-99)
06/26/24 10:10
06/26/24 10:10
Vital Signs
Initial and Last Documented VS:
Initial Vital Signs
BP
154/81
06/26/24 09:30
Last Documented Vital Signs
Temp Pulse Resp BP Pulse Ox
98.2 F 96 14 129/87 97
06/26/24 09:32 06/26/24 12:45 06/26/24 12:45 06/26/24 12:00 06/26/24 12:45
*Critical Care Note
Total Time (30-74mins, 75-104mins- exclusive of procedures): Not Applicable
ED Attending Note
-
Portions of this chart may have been created with voice recognition software.� Occasional wrong word or��sound alike� substitutions may have occurred due to the inherent limitations of voice recognition software.
Discharge Plan
Departure
Patient Disposition: [facility]
Date of Disposition: 06/26/24
Time of Disposition: 13:42
Patient with high blood pressure during this ER visit?: Yes
Discharge Problem:
Syncope
Instructions: Syncope (Fainting) (DC), Chest Pain CBC Follow Up
Prescriptions:
No Action
methocarbamol 750 mg Tablet
750 mg PO BIDPRN PRN (Reason: back pain)
cyclobenzaprine 5 mg Tablet
5 mg PO BIDPRN PRN (Reason: muscle spasms)
diltiazem HCl 180 mg Capsule,Extended Release 24hr
180 mg PO DAILY Qty: 0 0RF
thiamine HCl (vitamin B1) 100 mg Tablet
100 mg PO BID Qty: 0 0RF
folic acid 1 mg Tablet
1 mg PO DAILY Qty: 0 0RF
Eliquis 5 mg Tablet
5 mg PO BID Qty: 0 0RF
Referrals:
Stalin Adhikari MD [Active] -
[facility] [Family Provider] -
Activity Restrictions/Additional Instructions:
The cause of your symptoms is unclear. We did give you dose of Eliquis, Cardizem IV and orally. Complete blood cell count, basic chemistry labs, cardiac blood work was normal. There is no sign of blood clot in the leg. CAT scan of the head shows
no abnormality. I have also given you the contact information for the local employee health rn.
Interventions
Interventions:
*Risk Screen - Suicide Last Done: 06/26/24 09:32
*General Assessment Last Done: 06/26/24 09:32
*Neglect/Abuse Screening Last Done: 06/26/24 09:32
ED- Cardiac Assessment Last Done: 06/26/24 09:45
Discharge Date and Time
Print Language: BENINESE
[2024-06-26 09:41] VITALS: BMI 31.9
[2024-06-26 10:00] VITALS: BP 127/88
[2024-06-26 10:25] LABS: % Basophils 0.3 % (0-2); % Eosinophils 2.2 % (0-6); % Immature Granulocytes 0.2 % (0-0.5); % Lymphocytes 10.1 % (20.5-51.1); % Monocytes 10.9 % (1.7-9.3); % Neutrophils 76.3 % (42.2-75.2); Absolute Eosinophils 0.1 10^3/uL (0-0.7); Absolute Lymphocytes 0.6 10^3/uL (1.2-3.4); Absolute Monocytes 0.6 10^3/uL (0.1-0.6); Absolute Neutrophils 4.5 10^3/uL (1.4-6.5); Hemoglobin 14.8 g/dL (13.0-18.0); Mean Corp Hgb Conc. 34.4 g/dL (33.0-37.0); Mean Corpuscular Hgb 31.6 pg (27.0-31.0); Mean Corpuscular Volume 91.9 fL (80.0-94.0); Mean Platelet Volume 9.4 fL (7.4-10.4); Nucleated Red Blood Cells % 0 % (-); Platelet Count 174 10^3/uL (130-400); Red Blood Cell Count 4.68 10^6/uL (4.70-6.10); Red Cell Dist. Width 13.4 % (11.5-14.5); White Blood Cell Count 5.9 10^3/uL (4.8-10.8)
[2024-06-26 10:42] LABS: Blood Urea Nitrogen 14 mg/dl (9-20); Calcium 9.7 mg/dl (8.4-10.2); Carbon Dioxide 29 mmol/L (22-30); Chloride 103 mmol/L (98-107); Estimated Creatinine Clearance 116 ml/min; Glucose 111 mg/dl (70-99); Magnesium 2.1 mg/dl (1.6-2.3); Potassium 4.2 mmol/L (3.5-5.1); Sodium 138 mmol/L (135-145); eGFR > 60.00
[2024-06-26 10:53] LABS: Troponin I < 0.012 ng/ml
[2024-06-26 11:17] VITALS: BP 152/101
[2024-06-26 12:00] VITALS: BP 129/87
[2024-06-26 13:00] VITALS: BP 150/85
[2024-06-26] MEDS: NSS 1000 IV (13:46)
[2024-06-26] MEDS: CARDIZEM 10 MG IV (13:46)
[2024-06-26] MEDS: ELIQUIS 5 MG PO (13:46)
[2024-06-26 14:00] VITALS: BP 152/94
[2024-06-26] MEDS: CARDIZEM CD 180 MG PO (14:37)
== END 2024-06-26 14:47 ==
LOC: EMR 09:25
PROVIDERS: EMERGENCY PHYSICIAN Emergency Medicine
DX: R55 Syncope and collapse (principal); R53.1 Weakness; I48.91 Unspecified atrial fibrillation; Z79.01 Long term (current) use of anticoagulants
CPT/HCPCS: 99284; 96374; 96361; 70450; 80048; 83735; 84484; 85025; 93005; 93971

== ENCOUNTER 2024-08-06 18:34 | Emergency (ER) | payer OTHER, SELFPAY ==
[2024-08-06] VITALS (10 sets, daily range): BP systolic 120–131; BP diastolic 80–102; PULSE 85–94; BMI 30.6
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
[2024-08-06] MEDS: NSS 1000 IV (19:18)
[2024-08-06] MEDS: ZOFRAN 4 MG IV (19:18)
[2024-08-06 19:38] LABS: % Basophils 0.6 % (0-2); % Eosinophils 3.7 % (0-6); % Immature Granulocytes 0.3 % (0-0.5); % Lymphocytes 21.2 % (20.5-51.1); % Monocytes 15.5 % (1.7-9.3); % Neutrophils 58.7 % (42.2-75.2); Absolute Eosinophils 0.1 10^3/uL (0-0.7); Absolute Lymphocytes 0.7 10^3/uL (1.2-3.4); Absolute Monocytes 0.5 10^3/uL (0.1-0.6); Absolute Neutrophils 2.1 10^3/uL (1.4-6.5); Hemoglobin 14.8 g/dL (13.0-18.0); Mean Corp Hgb Conc. 36.1 g/dL (33.0-37.0); Mean Corpuscular Hgb 32.7 pg (27.0-31.0); Mean Corpuscular Volume 90.7 fL (80.0-94.0); Mean Platelet Volume 9.5 fL (7.4-10.4); Nucleated Red Blood Cells % 0 % (-); Platelet Count 166 10^3/uL (130-400); Red Blood Cell Count 4.52 10^6/uL (4.70-6.10); Red Cell Dist. Width 13.1 % (11.5-14.5); White Blood Cell Count 3.5 10^3/uL (4.8-10.8)
[2024-08-06 20:03] LABS: ALT (SGPT) 19 U/L (0-50); AST (SGOT) 22 U/L (17-59); Albumin 4.6 g/dl (3.5-5.0); Alkaline Phosphatase 84 U/L (38-126); Blood Urea Nitrogen 15 mg/dl (9-20); Calcium 9.6 mg/dl (8.4-10.2); Carbon Dioxide 29 mmol/L (22-30); Chloride 100 mmol/L (98-107); Estimated Creatinine Clearance 104 ml/min; Glucose 100 mg/dl (70-99); Potassium 3.9 mmol/L (3.5-5.1); Sodium 141 mmol/L (135-145); Total Protein 7.1 g/dl (6.3-8.2); eGFR > 60.00
[2024-08-06 20:14] LABS: Troponin I < 0.012 ng/ml
== END 2024-08-06 21:29 ==
LOC: EMR 18:34
PROVIDERS: Clinical Nurse Specialist Family Health; EMERGENCY PHYSICIAN Emergency Medicine
DX: R55 Syncope and collapse (principal); R07.81 Pleurodynia; I48.91 Unspecified atrial fibrillation; Z79.01 Long term (current) use of anticoagulants
CPT/HCPCS: 99285; 96374; 96361; 70450; 71101; 80053; 84484; 85025; 93005